=== PATIENT | male | born 1965 | race African-American/Black ===

== ENCOUNTER 2022-04-29 09:59 | Emergency (ER) | payer BC ==
[2022-04-29] MEDS ORDERED: IBUPROFEN 400 MG TAB ONE (10:34)
[2022-04-29] MEDS ORDERED: HYDROCODONE/APAP 7.5/325 MG TAB ONE (10:35)
[2022-04-29] MEDS ORDERED: IBUPROFEN 200 MG TAB PO ONE (10:35)
--- NOTE | 2022-04-29 10:39 | RAD REPORT ---
EXAM DESCRIPTION: RAD - Ankle Right 3 View - 04/29/2022 10:25 am CLINICAL HISTORY: Pain COMPARISON: No comparisons FINDINGS: Oblique fracture is seen involving the distal fibula. Small avulsion fracture also suspect ed medial malleolus. Small to moderate plantar calcaneal spur. Moderate surrounding soft tissue swell ing.
--- NOTE | 2022-04-29 10:40 | EDPHYS ---
Physician Documentation [facility] [place] Name: Ervin Miller Age: 56 yrs Sex: Male : 1965 Arrival Date: 04/29/2022 Time: 10:02 Bed 14 Private MD: Adan Cartwright HPI: 04/29 10:25 This 56 yrs old Black Male presents to ER via Wheelchair with complaints of Foot Injury.snw 10:25 The patient presents with decreased range of motion, an injury, pain, swelling, snw tenderness. The complaints affect the right ankle. Context: The problem was sustained at home, resulted from stepped onto ball, the patient is not able to bear weight, must have assistance. Onset: The symptoms/episode began/occurred suddenly. Associated signs and symptoms: Pertinent positives: swelling. Severity of symptoms: At their worst the symptoms were moderate, severe. The patient has not experienced similar symptoms in the past. Historical: - Allergies: 10:16 No Known Allergies; aa5 - Home Meds: 10:16 None [Active]; aa5 - PMHx: 10:16 None; aa5 - PSHx: 10:16 None; aa5 - Immunization history:: Adult Immunizations unknown. - Social history:: Smoking status: Patient reports the use of cigarette tobacco products, smokes one pack cigarettes per day. ROS: 10:25 Constitutional: Negative for fever, chills, and weight loss, Eyes: Negative for injury, snw pain, redness, and discharge, ENT: Negative for injury, pain, and discharge, Neck: Negative for injury, pain, and swelling, Cardiovascular: Negative for chest pain, palpitations, and edema, Respiratory: Negative for shortness of breath, cough, wheezing, and pleuritic chest pain, Abdomen/GI: Negative for abdominal pain, nausea, vomiting, diarrhea, and constipation, Back: Negative for injury and pain, : Negative for injury, bleeding, discharge, and swelling, Skin: Negative for injury, rash, and discoloration, Neuro: Negative for headache, weakness, numbness, tingling, and seizure, Psych: Negative for depression, anxiety, suicide ideation, homicidal ideation, and hallucinations. 10:25 MS/extremity: Positive for injury or acute deformity, decreased range of motion, pain, swelling, of the right ankle. Exam: 10:24 Constitutional: This is a well developed, well nourished patient who is awake, alert, snw and in no acute distress. Head/Face: Normocephalic, atraumatic. Eyes: Pupils equal round and reactive to light, extra-ocular motions intact. Lids and lashes normal. Conjunctiva and sclera are non-icteric and not injected. Cornea within normal limits. Periorbital areas with no swelling, redness, or edema. ENT: Nares patent. No nasal discharge, no septal abnormalities noted. Tympanic membranes are normal and external auditory canals are clear. Oropharynx with no redness, swelling, or masses, exudates, or evidence of obstruction, uvula midline. Mucous membranes moist. Neck: Trachea midline, no thyromegaly or masses palpated, and no cervical lymphadenopathy. Supple, full range of motion without nuchal rigidity, or vertebral point tenderness. No Meningismus. Chest/axilla: Normal chest wall appearance and motion. Nontender with no deformity. No lesions are appreciated. Cardiovascular: Regular rate and rhythm with a normal S1 and S2. No gallops, murmurs, or rubs. Normal PMI, no JVD. No pulse deficits. Respiratory: Lungs have equal breath sounds bilaterally, clear to auscultation and percussion. No rales, rhonchi or wheezes noted. No increased work of breathing, no retractions or nasal flaring. Abdomen/GI: Soft, non-tender, with normal bowel sounds. No distension or tympany. No guarding or rebound. No evidence of tenderness throughout. Back: No spinal tenderness. No costovertebral tenderness. Full range of motion. Skin: Warm, dry with normal turgor. Normal color with no rashes, no lesions, and no evidence of cellulitis. Neuro: Awake and alert, GCS 15, oriented to person, place, time, and situation. Cranial nerves II-XII grossly intact. Motor strength 5/5 in all extremities. Sensory grossly intact. Cerebellar exam normal. Normal gait. Psych: Awake, alert, with orientation to person, place and time. Behavior, mood, and affect are within normal limits. 10:24 Musculoskeletal/extremity: Extremities: grossly normal except: noted in the right ankle: decreased ROM, swelling, tenderness, ROM: limited active range of motion due to pain, limited passive range of motion due to pain, Circulation is intact in all extremities. Sensation intact. Vital Signs: 10:05 BP 131 / 84; Pulse 68; Resp 18 S; Temp 98.3(O); Pulse Ox 99% on R/A; Weight 104.33 kg aa5 (R); Height 6 ft. 1 in. (185.42 cm) (R); Pain 8/10; 10:05 Body Mass Index 30.34 (104.33 kg, 185.42 cm) aa5 MDM: 10:15 Patient medically screened. snw 10:30 Data reviewed: vital signs, nurses notes. Data reviewed: radiologic studies, plain snw films, Salazar C fx, bimalleolar. Data interpreted: Pulse oximetry: on room air is 99 %. Interpretation: normal. Counseling: I had a detailed discussion with the patient and/or guardian regarding: the historical points, exam findings, and any diagnostic results supporting the discharge/admit diagnosis, the presence of at least one elevated blood pressure reading (>120/80) during this emergency department visit, lab results, radiology results, the need for outpatient follow up, for definitive care. Special discussion: Based on the history and exam findings, there is no indication for further emergent testing or inpatient evaluation. I discussed with the patient/guardian the need to see the orthopedic surgeon for further evaluation of the symptoms. 04/29 10:16 Order name: Ankle Right 3 View XRAY; Complete Time: 10:46 snw 04/29 10:23 Order name: Posterior Orthoglass Ankle Splint; Complete Time: 11:36 snw 04/29 10:23 Order name: Crutches; Complete Time: 11:36 snw 04/29 10:23 Order name: Crutch Training; Complete Time: 11:36 snw 04/29 10:33 Order name: Misc. Order: heavily pad the splint; Complete Time: 11:36 snw Administered Medications: 10:34 Drug: [place] (HYDROcodone-acetaminophen) (7.5 mg-325 mg) 1 tabs Route: PO; ko1 10:34 Drug: Motrin (ibuprofen) 600 mg Route: PO; ko1 Disposition Summary: 04/29/22 10:40 Discharge Ordered Location: Home snw Condition: Stable snw Diagnosis - Pain in right ankle and joints of right foot snw - Sprain of ankle snw - Nondisplaced fracture of medial malleolus of right tibia snw - Nondisplaced fracture of lateral malleolus of right fibula snw Followup: snw - With: Emergency Department - When: 2 - 3 days - Reason: Recheck today's complaints, Continuance of care, Re-evaluation by your physician Followup: snw - With: Private Physician - When: 2 - 3 days - Reason: Recheck today's complaints, Continuance of care, Re-evaluation by your physician Discharge Instructions: - Discharge Summary Sheet snw - Ankle Fracture snw - Ankle Sprain snw - Cast or Splint Care, Adult snw - RICE Therapy for Routine Care of Injuries snw - Ankle Pain snw Forms: - Medication Reconciliation Form snw - Thank You Letter snw - Antibiotic Education snw - Prescription Opioid Use snw Prescriptions: - Mobic 7.5 mg Oral Tablet - take 1 tablet by ORAL route once daily take with food; 20 tablet; Refills: 0, snw Product Selection Permitted - Tramadol 50 mg Oral Tablet - take 1 tablet by ORAL route every 8 hours as needed; 12 tablet; Refills: 0, snw Product Selection Permitted Signatures: Dispatcher [employer] EDMS Carolyn Harris, [employer]-C [employer]-Csnw Natividad Reeves, RN RN aa5 Cheryl Granados, RN RN ko1
--- NOTE | 2022-04-29 10:40 | ER ---
Nurse's Notes [facility] Name: Ervin Miller Age: 56 yrs Sex: Male : 1965 Arrival Date: 04/29/2022 Time: 10:02 Bed 14 Private MD: Diagnosis: Pain in right ankle and joints of right foot;Sprain of ankle;Nondisplaced fracture of medial malleolus of right tibia;Nondisplaced fracture of lateral malleolus of right fibula Presentation: 04/29 10:05 Chief complaint: Chief complaint: Patient states: "I was playing with my grandkid and I aa5 stepped on a ball and rolled my ankle". pt c/o right ankle pain, swelling noted to right ankle. Pt falling asleep during triage, pt states "I took 3 shots (ETOH) right before coming here". 10:05 Coronavirus screen: At this time, the client does not indicate any symptoms associated aa5 with coronavirus-19. Ebola Screen: Patient denies travel to an Ebola-affected area in the 21 days before illness onset. Initial Sepsis Screen: Does the patient meet any 2 criteria? No. Patient's initial sepsis screen is negative. Does the patient have a suspected source of infection? No. Patient's initial sepsis screen is negative. Risk Assessment: Do you want to hurt yourself or someone else? Patient reports no desire to harm self or others. Onset of symptoms was April 29, 2022. 10:05 Acuity: FRED 4 aa5 10:05 Method Of Arrival: Wheelchair aa5 Historical: - Allergies: 10:16 No Known Allergies; aa5 - Home Meds: 10:16 None [Active]; aa5 - PMHx: 10:16 None; aa5 - PSHx: 10:16 None; aa5 - Immunization history:: Adult Immunizations unknown. - Social history:: Smoking status: Patient reports the use of cigarette tobacco products, smokes one pack cigarettes per day. Vital Signs: 10:05 BP 131 / 84; Pulse 68; Resp 18 S; Temp 98.3(O); Pulse Ox 99% on R/A; Weight 104.33 kg aa5 (R); Height 6 ft. 1 in. (185.42 cm) (R); Pain 8/10; 10:05 Body Mass Index 30.34 (104.33 kg, 185.42 cm) aa5 ED Course: 10:02 Patient arrived in ED. as 10:05 Arm band placed on. aa5 10:15 [facility]yn Harris [facility]C [facility] snw 10:15 Adan Al MD is Attending Physician. snw 10:16 Triage completed. aa5 10:26 Ankle Right 3 View XRAY In Process Unspecified. EDMS 11:04 Jojo Waters, RN is Primary Nurse. hb 12:03 Orthoglass splint: Posterior short lleg splint applied on right leg. mm9 12:04 Crutch training done. mm9 Administered Medications: 10:34 Drug: [place] (HYDROcodone-acetaminophen) (7.5 mg-325 mg) 1 tabs Route: PO; ko1 10:34 Drug: Motrin (ibuprofen) 600 mg Route: PO; ko1 Outcome: 10:40 Discharge ordered by . snw 11:37 Patient left the ED. hb Signatures: Dispatcher [employer] EDPR Carolyn Harris FNP-C [employer]-Reshma Ernandez as Natividad Reeves RN RN aa5 Jojo Waters, VILMA RN Cheryl Granados RN RN valencia1 Jessica Wade mm9
[2022-04-29 11:49] VITALS: BP 131/84; TEMP 98.3; O2SAT 99
== END 2022-04-29 11:37 | disposition home or self-care (01) ==
LOC: ER 09:59
PROC: 2W3QX1Z Immobilization of Right Lower Leg using Splint (ICD-10-PCS; principal; 2022-04-29)
DX: S82.54XA Nondisplaced fracture of medial malleolus of right tibia, initial encounter for closed fracture (principal); S82.64XA Nondisplaced fracture of lateral malleolus of right fibula, initial encounter for closed fracture; S93.401A Sprain of unspecified ligament of right ankle, initial encounter; F17.210 Nicotine dependence, cigarettes, uncomplicated
CPT/HCPCS: 99283